=== PATIENT | male | born 1980 | race Caucasian/White ===

== ENCOUNTER → 2018-03-19 | Outpatient (CLI) | payer BC | END | disposition home or self-care (01) | LOC: RT 09:58 | DX: G47.33 Obstructive sleep apnea (adult) (pediatric) (principal) | CPT/HCPCS: G0399 ==

== ENCOUNTER → 2018-04-25 | Outpatient (CLI) | payer BC ==
[2018-04-25] MEDS: ZOLPIDEM 5 MG TABLET. PO (21:00)
== END | disposition home or self-care (01) ==
LOC: RT 18:31
DX: G47.33 Obstructive sleep apnea (adult) (pediatric) (principal)
CPT/HCPCS: 95811